=== PATIENT | male | born 1945 | race Caucasian/White ===

== ENCOUNTER 2023-12-01 20:25 | Inpatient (IN) | payer MEDICARE, OTHER, SELFPAY ==
[2023-12-01] VITALS (12 sets, daily range): BP systolic 110–164; BP diastolic 59–82; BMI 27.3; BMI 32.5
--- NOTE | 2023-12-01 12:16 | ED.GENMED ---
History of Present Illness
General
Chief Complaint: Male Genito-Urinary Symptoms
Source: patient
Exam Limitations: none
Time Seen by Provider: 12/01/23 12:01
Travel History
Have you had any contact with someone who has COVID-19?: No
Do you have any symptoms of coronavirus? Fever > 100 degrees, chills, cough, shortness of breath, sore throat, loss of taste or smell, muscle aches, or headache?: No
History of Present Illness
History of Present Illness:
78-year-old male on aspirin and Brilinta presents with grossly bloody urine starting today. He notes increased frequency but denies any dysuria. He feels as though he empties his bladder every time he urinates. No flank pain. No fever. No prior
issues similar to this. No other complaints at this time
Past History
Past History
ED Past Medical History: CAD
ED Past Surgical History: None
Social History
Tobacco: Former smoker
Alcohol: Occasional
Personal:
Living: with family
Phy Exam
Physical Exam
Physical Exam:
General: Well-appearing male no acute respiratory distress
HEENT: Normocephalic atraumatic
Heart: Regular rate and rhythm no murmurs
Lungs: Clear to auscultation bilaterally no wheezing
Abdomen is soft nontender nondistended no guarding or rebound normal bowel sounds
Extremities: No cyanosis or edema
Course
Orders/Labs/Results
Orders:
Orders
12/01/23 12:39
Complete Blood Count/With Diff Urgent
Comprehensive Metabolic Panel Urgent
PTT Urgent
Prothrombin Time Urgent
Urinalysis Reflex To Culture Urgent
Date Specimen was Collected: 12/01/23
Time Specimen was Collected: 12:20
Urine Microscopic Reflex Cult Urgent
12/01/23 14:11
Lidocaine 2% [Lidocaine Uro-Jet 2%] 1 syringe .ROUTE .[facility]
12/01/23 14:17
CBI- Treatment Q1H
Solution: saline
Irrigate to Clear?: Yes
Catheter [Julian Placement- Treatment] ONCE
Reason for insertion: Acute Retention
Catheter- Indwelling As Directed
Reason for insertion: Acute Retention
Size: 24
Type: 3 way
Discontinue Date/Time: 12/04/23 0600
12/01/23 14:52
CT Abd/pel Without Iv Or Oral Urgent
Comment:
Reason For Exam: hematuria
12/01/23 17:34
CefTRIAXone [Rocephin] 1,000 mg IV NOW STA
Abnormal Lab Results
12/01/23
12:39
RBC 4.33 L 10^6/uL
(4.70-6.10)
MCH 33.5 H pg
(27.0-31.0)
Chloride 109 H mmol/L
(98-107)
BUN 23 H mg/dl
(9-20)
Urine Ketones 1+ A
(Negative)
Ur Occult Blood Reflex 4+ A
(Negative)
Urine Bilirubin 1+ A
(Negative)
Urine RBC >100 A /HPF
(0-2)
Urine Albumin (Reflex) 3+ A
(Neg - Trace)
12/01/23 12:39
12/01/23 12:39
Vital Signs
Initial and Last Documented VS:
Initial Vital Signs
Temp Pulse Resp BP Pulse Ox
98.1 F 59 18 157/76 98
12/01/23 11:30 12/01/23 11:30 12/01/23 11:30 12/01/23 11:30 12/01/23 11:30
Last Documented Vital Signs
Temp Pulse Resp BP Pulse Ox
98.1 F 60 18 127/76 100
12/01/23 11:30 12/01/23 17:15 12/01/23 11:30 12/01/23 17:00 12/01/23 17:15
MDM/Problems Addressed
Differential Diagnosis Includes:
Hematuria. Consider cystitis vs stone vs idiopathic.
check UA, labs. Vitals are stable. No flank pain.
Will obtain postvoid residual
*Critical Care Note
Total Time (30-74mins, 75-104mins- exclusive of procedures): Not Applicable
Update Note
Update Note:
Postvoid residual demonstrates greater than 860 mL in the bladder. A 24-gauge three-way catheter was placed and CBI was initiated. Patient received total of 6 L of irrigation. Patient still with bloody urine with small clots. CT of the abdomen
pelvis showed blood products in the bladder but no other acute finding. Patient will be kept in the hospital. Rocephin started. Urology and medical team made aware
ED Attending Note
-
Portions of this chart may have been created with voice recognition software.� Occasional wrong word or��sound alike� substitutions may have occurred due to the inherent limitations of voice recognition software.
Discharge Plan
Departure
Patient Disposition: Admit
Date of Disposition: 12/01/23
Time of Disposition: 17:42
Admit to: Med/Surg
Presentation/result/management discussed w/ accepting MD/DO: Hospitalist
Discharge Problem:
Hematuria
Prescriptions:
No Action
ascorbic acid (vitamin C) [Vitamin C] 500 mg Tablet
500 mg PO DAILY
vitamin B complex Tablet
1 tab PO DAILY
saw palmetto 500 mg Capsule
500 mg PO HS
Brilinta 90 mg Tablet
90 mg PO BID Qty: 180 1RF
aspirin 81 mg Tablet,Delayed Release (Dr/Ec)
81 mg PO DAILY Qty: 90 0RF
metoprolol succinate 25 mg tablet extended release 24 hr
25 mg PO HS
vitamin E 268 mg (400 unit) Capsule
268 mg PO DAILY
cholecalciferol (vitamin D3) [Vitamin D3] 25 mcg (1,000 unit) Tablet
25 mcg PO DAILY
atorvastatin 40 mg tablet
40 mg PO HS
nitroglycerin 0.4 mg tablet, sublingual
0.4 mg sublingual [id number] PRN (Reason: chest pain)
Referrals:
Blake Sage DO [Family Provider] -
Interventions
Interventions:
*Risk Screen - Suicide Last Done: 12/01/23 11:30
*General Assessment Last Done: 12/01/23 11:30
*Neglect/Abuse Screening Last Done: 12/01/23 11:30
ED- Fall Risk Assessment Last Done: 12/01/23 11:58
*ED COVID-19 Vaccine History Last Done: 12/01/23 11:58
ED-Male Genitourinary Assessment Last Done: 12/01/23 11:58
[2023-12-01 12:55] LABS: % Basophils 0.5 % (0-2); % Eosinophils 1.1 % (0-6); % Immature Granulocytes 0.3 % (0-0.5); % Lymphocytes 22.1 % (20.5-51.1); % Monocytes 8.2 % (1.7-9.3); % Neutrophils 67.8 % (42.2-75.2); Absolute Eosinophils 0.1 10^3/uL (0-0.7); Absolute Lymphocytes 1.4 10^3/uL (1.2-3.4); Absolute Monocytes 0.5 10^3/uL (0.1-0.6); Absolute Neutrophils 4.4 10^3/uL (1.4-6.5); Hematocrit 40.7 % (39.0-52.0); Hemoglobin 14.5 g/dL (13.0-18.0); Mean Corp Hgb Conc. 35.6 g/dL (33.0-37.0); Mean Corpuscular Hgb 33.5 pg (27.0-31.0); Mean Platelet Volume 10.2 fL (7.4-10.4); Nucleated Red Blood Cells % 0 % (-); Platelet Count 206 10^3/uL (130-400); Red Blood Cell Count 4.33 10^6/uL (4.70-6.10); Red Cell Dist. Width 12.6 % (11.5-14.5); White Blood Cell Count 6.4 10^3/uL (4.8-10.8)
[2023-12-01 13:07] LABS: ALT (SGPT) 27 U/L (0-50); AST (SGOT) 31 U/L (17-59); Albumin 3.9 g/dl (3.5-5.0); Alkaline Phosphatase 121 U/L (38-126); Blood Urea Nitrogen 23 mg/dl (9-20); Carbon Dioxide 26 mmol/L (22-30); Chloride 109 mmol/L (98-107); Estimated Creatinine Clearance 53 ml/min; Glucose 80 mg/dl (70-99); Potassium 3.9 mmol/L (3.5-5.1); Sodium 137 mmol/L (135-145); Total Bilirubin 1.3 mg/dl (0.2-1.3); Total Protein 6.6 g/dl (6.3-8.2); eGFR > 60.00
--- NOTE | 2023-12-01 13:09 | EDRN ---
the pt pressed the call chung and this RN entered the pts room and stated to this RN, 'I have a few problems, first the blood pressure cuff gets tight when it goes off and what do i do when i have to go to the bathroom, i'm all hooked up here', this
RN notified the pt to press the call chung when he needs to urinate, will continue to monitor the pt closely
[2023-12-01 13:14] LABS: Urine Albumin 3+ (Neg - Trace); Urine Bilirubin 1+ (Negative); Urine Character Bloody (Clear); Urine Color Red; Urine Glucose Negative (Negative); Urine Ketone 1+ (Negative); Urine Leukocyte Negative (Negative); Urine Nitrite Negative (Negative); Urine Occult Blood 4+ (Negative); Urine Urobilinogen Negative (Neg - 1+)
--- NOTE | 2023-12-01 13:19 | EDRN ---
the pt pressed the call chung and this RN entered the pts room, the pt stated to this RN 'I need to go to the bathroom so unhook me', this RN removed panel monitor, Sp02 disconnected and BP cuff disconnected, the pt ambulated to the bathroom with
no issues
[2023-12-01 13:30] LABS: APTT 29.3 Sec (23.4-35.0); INR 1.12; PT 14.2 Sec (11.4-14.6)
[2023-12-01 13:33] LABS: Urine Red Blood Cell >100 /HPF (0-2)
--- NOTE | 2023-12-01 13:56 | EDRN ---
the pt was bladder scanned per Jose Elias MARIE and >863 was found to be in the pts bladder, this was post void residual
[2023-12-01] MEDS: ROCEPHIN 1000 MG IV (17:41)
--- NOTE | 2023-12-01 19:40 | HPS.HSE ---
Family Physician
-
Family Physician: Blake Sage
Chief Complaint
-
Bloody urine
History of Present Illness
78 y/o male with past medical history of coronary artery disease, NSTEMI (placed on Dual Antiplatelet therapy in March 2023 after stent placed), urinary retention, hypertension, hyperlipidemia and obesity presented with bloody urine since this
morning. Patient called his primary care provider who advised that patient go to the ER if his hematuria persisted which it did. Patient said subsequent urination showed more intense red-colored urine. Patient denied any suprapubic pain, abdominal
pain, dizziness, palpitations or any other complaints. Patient also was found to be retaining urine in the ER, and was started on continuous bladder irrigation, urine was also found to have small blood clots.
Medical History
Past Medical History
Past Medical History: Reports Other (As per HPI above)
Past Surgical History: Reports Cardiac
Social History
Tobacco: Former Smoker
Alcohol: Occasional
Family History
Family History: Not pertinent
Allergies / Home Medications
Allergies reflects when Allergies were last updated in [facility].
Home Medications with original date entered in [facility]
Allergy/Medication List:
Allergies
Allergy/AdvReac Type Severity Reaction Status Date / Time
No Known Allergies Allergy Verified 12/01/23 11:30
Home Medications
ascorbic acid (vitamin C) 500 mg tablet (Vitamin C) 500 mg PO DAILY Supplement 04/11/23
saw palmetto 500 mg capsule 500 mg PO HS Supplement 04/11/23
vitamin B complex 1 tab PO DAILY Supplement 04/11/23
aspirin 81 mg tablet,delayed release 81 mg PO DAILY Blood Clot Prevention/Tx #90 tabs 04/12/23
ticagrelor 90 mg tablet (Brilinta) 90 mg PO BID #180 tabs 04/12/23
atorvastatin 40 mg tablet 40 mg PO HS 12/01/23
cholecalciferol (vitamin D3) 25 mcg (1,000 unit) tablet (Vitamin D3) 25 mcg PO DAILY 12/01/23
metoprolol succinate 25 mg tablet,extended release 24 hr 25 mg PO HS 12/01/23
nitroglycerin 0.4 mg sublingual tablet 0.4 mg sublingual [id number] PRN chest pain 12/01/23
vitamin E 268 mg (400 unit) capsule 268 mg PO DAILY 12/01/23
Review of Systems
-
A 12 point ROS was completed and negative except as noted: Yes
Physical Exam
Vital Signs
Vital Signs
Temp Pulse Resp BP Pulse Ox
98.1 F 59 18 143/76 100
12/01/23 11:30 12/01/23 19:00 12/01/23 11:30 12/01/23 19:00 12/01/23 19:00
Physical Exam
General: No Apparent Distress and Conversant
HEENT: NormoCephalic and Moist mucous membranes
Respiratory: Clear
Cardiac: S1/S2 and Regular Rhythm
GI: Soft, Non Tender and Normal Bowel Sounds
Genito-urinary: Continuous Bladder Irrigation
Musculoskeletal: No Cyanosis
Skin: Warm and Dry
Neuro: Awake, Alert and AO x 3
Psych: Calm and Intact Judgment/Insight
Laboratory Results
-
12/01/23 12:39
12/01/23 12:39
Laboratory Results
PT 14.2 Sec (11.4-14.6) 12/01/23 12:39
INR 1.12 12/01/23 12:39
APTT 29.3 Sec (23.4-35.0) 12/01/23 12:39
Total Bilirubin 1.3 mg/dl (0.2-1.3) 12/01/23 12:39
AST 31 U/L (17-59) 12/01/23 12:39
ALT 27 U/L (0-50) 12/01/23 12:39
Alkaline Phosphatase 121 U/L (38-126) 12/01/23 12:39
Impression/Plan
-
Assessment/Plan
Gross hematuria
Urinary Retention
-Urology consulted, recommendations appreciated
-Per discussion with Dr. Johnson (on-call urologist) via [place] [employer] on December 01, 2023: can give Tolterodine 4 mg Q24H and Diazepam 5 mg PO TID as needed for urinary catheter discomfort
-Continue CBI
-Monitor CBC
-Will need to check with cardiology regarding whether safe to hold non-Aspirin antiplatelet agent given NSTEMI in March 2023 status post stent placement
Coronary artery disease
NSTEMI (placed on Dual Antiplatelet therapy in March 2023 after stent placed)
-Continue DAPT for now
-Continue home Toprol XL 25 mg PO HS
-Continue home Atorvastatin 40 mg HS
Hypertension - continue home beta yovany as above
Hyperlipidemia - continue statin as above
Obesity
DVT Prophylaxis: SCDs (no chemical DVT PPx due to hematuria)
Code Status:
Gross hematuria while on dual antiplatelet therapy for NSTEMI and stent in March 2023 and monitoring of hemoglobin is a high risk encounter.
--- NOTE | 2023-12-01 21:00 | CON.CAR ---
Consultation
Consultation Request
Date/Time Consultation Requested: December 01, 2023
Date/Time Consultation Performed: December 02, 2023
Requesting Provider: Hospitalist
Performing Provider: Elizabeth
Reason for Consultation: Hematuria-DAPT therapy
Medical History
-
Chief Complaint: Hematuria
History of Present Illness:
78 year old male with prior history of stent 03/2023 who presents with enrike hematuria. On DAPT therapy. S/P bustamante with irrigation. LAD stent 03/2023. We are consulted for management. He discussed his care with Dr. Jonhson. His hematuria appears
to be improving today. He is not missed any doses of DAPT therapy at home. He has no active chest pain or pressure.
Assessment:
Presentation with hematuria
DAPT Therapy
NSTEMI, peak trop 0.21, s/p LAD PCI 04/11/23
HTN
Past Medical History
Past Medical History: CAD
Past Surgical History: Cardiac
Social History
Tobacco: Non-Smoker
Alcohol: None
Drug: None
Personal: Other
Living: Other
Employment: Retired
Family History
Family History: Reviewed & Not Pertinent
Allergies / Home Medications
Allergy/AdvReac Type Severity Reaction Status Date / Time
No Known Allergies Allergy Verified 12/01/23 11:30
Medication Instructions Recorded Confirmed Type
ascorbic acid (vitamin C) 500 mg 500 mg PO DAILY Supplement 04/11/23 12/01/23 History
tablet (Vitamin C)
saw palmetto 500 mg capsule 500 mg PO HS Supplement 04/11/23 12/01/23 History
vitamin B complex 1 tab PO DAILY Supplement 04/11/23 12/01/23 History
aspirin 81 mg tablet,delayed 81 mg PO DAILY Blood Clot 04/12/23 12/01/23 Rx
release Prevention/Tx #90 tabs
ticagrelor 90 mg tablet (Brilinta) 90 mg PO BID #180 tabs 04/12/23 12/01/23 Rx
atorvastatin 40 mg tablet 40 mg PO HS 12/01/23 12/01/23 History
cholecalciferol (vitamin D3) 25 25 mcg PO DAILY 12/01/23 12/01/23 History
mcg (1,000 unit) tablet (Vitamin
D3)
metoprolol succinate 25 mg 25 mg PO HS 12/01/23 12/01/23 History
tablet,extended release 24 hr
nitroglycerin 0.4 mg sublingual 0.4 mg sublingual [id number] PRN 12/01/23 12/01/23 History
tablet chest pain
vitamin E 268 mg (400 unit) capsule 268 mg PO DAILY 12/01/23 12/01/23 History
Review of Systems
-
All other systems: Negative unless noted
: Bleeding
Physical Exam
Vital Signs
Temp Pulse Resp BP Pulse Ox
98.1 F 64 18 153/66 98
12/01/23 11:30 12/01/23 20:15 12/01/23 11:30 12/01/23 20:00 12/01/23 20:15
Lab Results
12/01/23 12:39
Physical Exam
General: Well Developed and Well Nourished
HEENT: Normocephalic and Anicteric
Respiratory: Clear
Cardiac: S1/S2 and Regular Rhythm
Breast: Deferred by me
GI: Soft, Non Tender and Non Distended
Rectal: Deferred by Provider
Genito-urinary: No Costovertebral Tender
Musculoskeletal: No Clubbing and No Cyanosis
Skin: Warm and Dry
Neuro: Awake, Alert and Oriented
Hematologic/Lymphatic: No Lymphadenopathy
Psych: Calm
Impression / Plan
-
Assessment:
Presentation with hematuria
DAPT therapy
NSTEMI, peak trop 0.21, s/p LAD PCI 04/11/23
HTN
Plan and recommendations:
Will continue uninterrupted aspirin regardless of his hematuria
Urology following and if his bleeding stops will be discharged with irrigation. If he has continued bleeding operative care may be required.
As such I would hold his Brilinta today and if bleeding improves would resume Brilinta tomorrow as he is only 6 months post stents and we would like to minimize interruption of his Brilinta.
I have no objection to resuming this tomorrow if he is improving and discharge per internal medicine and neurology
Data Reviewed
-
EKG: Tracing Personally Visualized and interpreted
Radiology: Image Personally Visualized and interpreted
Medical Tests (Nuc Med, Echo etc): Image Personally Visualized and interpreted
Labs: Labs Reviewed by me
Old Records: Reviewed
--- NOTE | 2023-12-01 21:30 | PTCARENOTE ---
Received pt from ED, ambulated from stretcher to bed- no complaints of pain, AAOx3, CBI running.
[2023-12-01] MEDS: TOPROL XL 25 MG PO (22:38)
[2023-12-01] MEDS: LIPITOR 40 MG PO (22:38)
[2023-12-01] MEDS: BRILINTA 90 MG PO (22:39)
[2023-12-01] MEDS: VALIUM 5 MG PO (22:39)
[2023-12-01] MEDS: DETROL LA 4 MG PO (22:39)
--- NOTE | 2023-12-02 00:17 | W.PN.UPDATE ---
Addendum entered and electronically signed by HEBER Garcia 12/02/23 06:09:
Dr alatorre states ok to hold brillinta
Ok to give TXA if needed
Addendum entered and electronically signed by HEBER Garcia 12/02/23 01:24:
will check with cardiology first prior to initiation on TXA given stent hx and DAPT
TT sent to dr alatorre
Original Note:
Update Note
Progress Note Update
RN reports despite CBI wide open pt needing hand irrigation of copious clots frequently (<15min)
Dr Johnson notified regarding above who recommended TXA iv x1
Will order per Urology recommendation
Will make NPO after midnight incase OR needed for clot evacuation
--- NOTE | 2023-12-02 01:00 | PTCARENOTE ---
Pt having frequent clots after multiple attempts with keeping CBI wide open. Hand irrigating Q15min. Notified POLICY SPECIALIST and Urology. Dr. Johnson recommended Tranxemic acid- POLICY SPECIALIST ordered but need clarification from cardiology given pt hx with recent stent.
Throughout night- after 4 hours of hand irrigating CBI; CBI draining (punch-pink). CBI needing hand irrigation every 2-3 hours- Pt comfortable. VSS
[2023-12-02 03:25] VITALS: BP 131/73
[2023-12-02 04:51] LABS: % Basophils 0.4 % (0-2); % Eosinophils 0.8 % (0-6); % Immature Granulocytes 0.4 % (0-0.5); % Lymphocytes 15.6 % (20.5-51.1); % Monocytes 8.6 % (1.7-9.3); % Neutrophils 74.2 % (42.2-75.2); Absolute Eosinophils 0.1 10^3/uL (0-0.7); Absolute Lymphocytes 1.2 10^3/uL (1.2-3.4); Absolute Monocytes 0.6 10^3/uL (0.1-0.6); Absolute Neutrophils 5.5 10^3/uL (1.4-6.5); Hematocrit 39.7 % (39.0-52.0); Hemoglobin 13.9 g/dL (13.0-18.0); Mean Corpuscular Hgb 33.7 pg (27.0-31.0); Mean Corpuscular Volume 96.4 fL (80.0-94.0); Mean Platelet Volume 10.6 fL (7.4-10.4); Nucleated Red Blood Cells % 0 % (-); Platelet Count 185 10^3/uL (130-400); Red Blood Cell Count 4.12 10^6/uL (4.70-6.10); Red Cell Dist. Width 12.4 % (11.5-14.5); White Blood Cell Count 7.4 10^3/uL (4.8-10.8)
[2023-12-02 05:14] LABS: Blood Urea Nitrogen 23 mg/dl (9-20); Calcium 9.4 mg/dl (8.4-10.2); Carbon Dioxide 23 mmol/L (22-30); Chloride 107 mmol/L (98-107); Estimated Creatinine Clearance 73 ml/min; Glucose 108 mg/dl (70-99); Sodium 138 mmol/L (135-145); eGFR > 60.00
--- NOTE | 2023-12-02 05:38 | CONS.URO ---
Consultation
-
Date/Time Consultation Performed: 12/02/2330
Performing Provider: Alex
Reason for Consultation: hematuria
Medical History
History of Present Illness
78 y/o male with past medical history of coronary artery disease, NSTEMI (placed on Dual Antiplatelet therapy in March 2023 after stent placed), presented with bloody urine since this morning. Patient called his primary care provider who advised that
patient go to the ED.
A 3-way Bustamante was placed in ED -- hand-irrigation was required numerous times to clear accumulated clots.
Pt reports no antecedent hx.
Past Medical History
Past Medical History: Other (CAD, hypertension, hyperlipidemia and obesity)
Family History
Family History: Reviewed & Not Pertinent
Allergies/Home Medications
Allergies
Allergy/AdvReac Type Severity Reaction Status Date / Time
No Known Allergies Allergy Verified 12/01/23 11:30
Home Medications
Medication Instructions Recorded Confirmed Type
ascorbic acid (vitamin C) 500 mg 500 mg PO DAILY Supplement 04/11/23 12/01/23 History
tablet (Vitamin C)
saw palmetto 500 mg capsule 500 mg PO HS Supplement 04/11/23 12/01/23 History
vitamin B complex 1 tab PO DAILY Supplement 04/11/23 12/01/23 History
aspirin 81 mg tablet,delayed 81 mg PO DAILY Blood Clot 04/12/23 12/01/23 Rx
release Prevention/Tx #90 tabs
ticagrelor 90 mg tablet (Brilinta) 90 mg PO BID #180 tabs 04/12/23 12/01/23 Rx
atorvastatin 40 mg tablet 40 mg PO HS 12/01/23 12/01/23 History
cholecalciferol (vitamin D3) 25 25 mcg PO DAILY 12/01/23 12/01/23 History
mcg (1,000 unit) tablet (Vitamin
D3)
metoprolol succinate 25 mg 25 mg PO HS 12/01/23 12/01/23 History
tablet,extended release 24 hr
nitroglycerin 0.4 mg sublingual 0.4 mg sublingual [id number] PRN 12/01/23 12/01/23 History
tablet chest pain
vitamin E 268 mg (400 unit) capsule 268 mg PO DAILY 12/01/23 12/01/23 History
Physical Exam
Vital Signs
Vital Signs
Temp Pulse Resp BP Pulse Ox
98.1 F 60 16 131/73 98
12/02/23 03:25 12/02/23 03:25 12/02/23 03:25 12/02/23 03:25 12/02/23 03:25
Lab / Testing Results
Laboratory Results
12/02/23 04:33
12/02/23 04:33
Physical Exam
adult male
General: Well Developed and Well Nourished
HEENT: Normocephalic
GI: Soft, Non Tender and Non Distended
Genito-urinary: No Costovertebral Tend and Bustamante Catheter (3-way bustamante: hand-irrigated --> no clots; pale pink outflow with CBI)
Assessment / Plan
-
Gross Hematuria: appear to be of benign prostatic origin potentiated by DAPT
Rec: CBI --> wean as tolerated; will remove Bustamante when hematuria has cleared; will need outpatient cysto to r/o non-visualized
bladder cancer
start Finasteride
Data Reviewed
-
CT Scan: Image personally visualized and interpreted (enlarged prostate with clotted blood in bladder but no upper tract pathology)
Lab Data: Labs Reviewed
Old Records: Reviewed
[2023-12-02 06:00] VITALS: BMI 32.3
[2023-12-02 07:35] VITALS: BP 133/74
[2023-12-02] MEDS: DETROL LA 4 MG PO (08:15)
[2023-12-02] MEDS: B COMPLEX w/VITAMIN C 1 CAPLET PO (08:15)
[2023-12-02] MEDS: PROSCAR 5 MG PO (08:16)
[2023-12-02] MEDS: VITAMIN C 500 MG PO (08:16)
[2023-12-02] MEDS: VITAMIN E 400 UNITS PO (08:16)
[2023-12-02] MEDS: ASPIR LOW (ENTERIC COATED) 81 MG PO (08:16)
[2023-12-02] MEDS: VITAMIN D3 (cholecalciferol) 25 MCG PO (08:16)
[2023-12-02 11:26] VITALS: BP 137/75
[2023-12-02 15:30] VITALS: BP 130/71
[2023-12-02] MEDS: ROCEPHIN 1000 MG IV (17:44)
[2023-12-02] MEDS: STERILE WATER FOR INJECTION 10 ML IV (17:45)
[2023-12-02 18:52] VITALS: BP 130/68
--- NOTE | 2023-12-02 18:57 | W.PN.HOSP.TC ---
Today's Communication/Plan
-
Urine getting more clear.
Hopefully can resume Brilinta tomorrow.
Continue Aspirin as usual.
CBC in the AM
Assessment / Plan
Assessment / Plan
Physical Exam
General: No Apparent Distress and Conversant
HEENT: Normocephalic and Moist mucous membranes
Respiratory: Clear
Cardiac: S1/S2 and Regular Rhythm
GI: Soft, Non Tender and Normal Bowel Sounds
Genito-urinary: Continuous Bladder Irrigation with 3-way bustamante catheter clear with some pale pink-colored urine
Skin: Warm and Dry
Neuro: Awake, Alert and AO x 3
Psych: Calm and Intact Judgment/Insight
Assessment/Plan
Gross hematuria likely suspected secondary benign prostatic potentiated by Dula Antiplatelet Therapy
Urinary Retention
-Urology consulted, recommendations appreciated
-Per discussion with Dr. Johnson (on-call urologist) via [place] [employer] on December 01, 2023:�can give Tolterodine 4 mg Q24H and Diazepam 5 mg PO TID as needed for urinary catheter discomfort
-Continue CBI but wean as tolerated
-Can remove Bustamante when hematuria has cleared -- check with urology first
-Will need outpatient cysto study to rule out bladder cancer
-Finasteride
-Monitor CBC
-Hold brilinta on 12/02/23 with goal of resuming on 12/03/23, as per cardiology
-Continue Aspirin
Coronary artery disease
NSTEMI (placed on Dual Antiplatelet therapy in March 2023 after stent placed)
-Continue Aspirin
-Brilinta to be continued hopefully on 12/03/23
-Continue home Toprol XL 25 mg PO HS
-Continue home Atorvastatin 40 mg HS
Hypertension - continue home beta yovany as above
Hyperlipidemia - continue statin as above
Obesity
DVT Prophylaxis: SCDs (no chemical DVT PPx due to hematuria)
Code Status: Full Code
Anticipated Discharge: 24 - 48 hours
Subjective/Interval History
-
Date of Service: December 02, 2023
Patient was seen and examined. Overnight, per report, patient was having more blood clots in the urinary catheter. Brilinta was held. Later in the morning, it appeared his urine was clearing up.
Objective Data
-
Vital Signs:
Vital Signs
Temp Pulse Resp BP Pulse Ox
98.9 F 69 17 130/68 98
12/02/23 18:47 12/02/23 18:47 12/02/23 18:47 12/02/23 18:52 12/02/23 15:37
I&O
12/01/23 12/02/23 12/03/23
06:59 06:59 06:59
Intake Total 180 / 180
Output Total 800 / 800
Balance -620 / -620
[2023-12-02] MEDS: LIPITOR 40 MG PO (19:40)
[2023-12-02] MEDS: TOPROL XL 25 MG PO (19:40)
[2023-12-02 23:20] VITALS: BP 134/76
[2023-12-03 04:00] VITALS: BP 121/75
[2023-12-03 06:00] VITALS: BMI 32.7
[2023-12-03 06:07] LABS: % Basophils 0.3 % (0-2); % Eosinophils 1.4 % (0-6); % Immature Granulocytes 0.1 % (0-0.5); % Lymphocytes 23.2 % (20.5-51.1); % Monocytes 9.4 % (1.7-9.3); % Neutrophils 65.6 % (42.2-75.2); Absolute Eosinophils 0.1 10^3/uL (0-0.7); Absolute Lymphocytes 1.8 10^3/uL (1.2-3.4); Absolute Monocytes 0.7 10^3/uL (0.1-0.6); Hematocrit 39.9 % (39.0-52.0); Hemoglobin 13.9 g/dL (13.0-18.0); Mean Corp Hgb Conc. 34.8 g/dL (33.0-37.0); Mean Corpuscular Volume 97.6 fL (80.0-94.0); Mean Platelet Volume 10.4 fL (7.4-10.4); Nucleated Red Blood Cells % 0 % (-); Platelet Count 179 10^3/uL (130-400); Red Blood Cell Count 4.09 10^6/uL (4.70-6.10); Red Cell Dist. Width 12.5 % (11.5-14.5); White Blood Cell Count 7.6 10^3/uL (4.8-10.8)
[2023-12-03 06:34] LABS: Blood Urea Nitrogen 22 mg/dl (9-20); Calcium 9.4 mg/dl (8.4-10.2); Carbon Dioxide 23 mmol/L (22-30); Chloride 105 mmol/L (98-107); Estimated Creatinine Clearance 60 ml/min; Glucose 91 mg/dl (70-99); Magnesium 2.1 mg/dl (1.6-2.3); Potassium 4.5 mmol/L (3.5-5.1); Sodium 137 mmol/L (135-145); eGFR > 60.00
[2023-12-03 08:17] VITALS: BP 127/63
[2023-12-03] MEDS: VITAMIN E 400 UNITS PO (08:17)
[2023-12-03] MEDS: ASPIR LOW (ENTERIC COATED) 81 MG PO (08:17)
[2023-12-03] MEDS: B COMPLEX w/VITAMIN C 1 CAPLET PO (08:17)
[2023-12-03] MEDS: DETROL LA 4 MG PO (08:17)
[2023-12-03] MEDS: VITAMIN C 500 MG PO (08:18)
[2023-12-03] MEDS: PROSCAR 5 MG PO (08:18)
[2023-12-03] MEDS: VITAMIN D3 (cholecalciferol) 25 MCG PO (08:18)
--- NOTE | 2023-12-03 08:38 | W.PN.URO.CBU ---
Today's Communication / Plan
-
Rec:
stop CBI
; will remove Julian if no clots recur; if he voids satisfactorily, he could then be discharged
will need outpatient cysto to r/o non-visualized bladder cancer
Finasteride
Assessment / Plan
-
hematuria has minimized
Diagnosis
-
Date of Service: December 03, 2023
-
Patient Diagnosis:
Gross Hematuria: appears to be of benign prostatic origin potentiated by DAPT
Objective
-
Vital Signs
Temp Pulse Resp BP Pulse Ox
97.9 F 69 14 127/63 96
12/03/23 08:17 12/03/23 08:17 12/03/23 08:17 12/03/23 08:17 12/03/23 08:17
Intake and Output
12/02/23 12/03/23 12/04/23
06:59 06:59 06:59
Intake Total 430 / 430
Output Total 2400 / 3910 1510 / 1510
Balance -1970 / -3480 -1510 / -1510
Intake:
Oral fluids 430 / 430
Output:
True Urine Output from CBI 2400 / 3910 1510 / 1510
Laboratory Results
12/03/23 05:47
12/03/23 05:47
Physical Exam
-
General - no acute distress
Abdomen - soft, non-tender, positive bowel sounds, no distention
Genitalia - Julian with slow CBI: pink outflow
Care Review
Data Reviewed
Discussed with: Cardiology (Dr Johnson on 12/02) and Nursing
[2023-12-03] MEDS: EMLA CREAM 1 GRAM TOPICAL ×2 (10:03→22:02)
--- NOTE | 2023-12-03 10:19 | W.PN.HOSP.TC ---
Addendum entered and electronically signed by Robert Edmond MD 12/03/23 14:02:
Dgt (Taylor) and son in law (Per) arrived and requested to review hospital course. >15 minutes spent reviewing their concerns
Addendum entered and electronically signed by Robert Edmond MD 12/03/23 12:34:
Pt c/o constipation, will add scheduled Colace and prn MOM
Original Note:
Today's Communication/Plan
-
Brilinta remains on hold with significant hematuria
will recheck UA with C&S, remains on Rocephin
Assessment / Plan
Assessment / Plan
Assessment/Plan
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
Urinary Retention
-Urology consulted, recommendations appreciated
-Per discussion with Dr. Johnson (on-call urologist) via [place] [facility] on December 01, 2023:�can give Tolterodine 4 mg Q24H and Diazepam 5 mg PO TID as needed for urinary catheter discomfort
- CBI has just been stopped, urine remains grossly bloody
-Can remove Bustamante when hematuria has cleared -- check with urology first
-Will need outpatient cysto study to rule out bladder cancer
-Finasteride
-Monitor CBC
-Brilinta was given 2/3 only, Holding brilinta on 12/02/23 with goal of resuming on 12/03/23, as per cardiology, but await further input from cardio
-Continue Aspirin
Coronary artery disease
NSTEMI (placed on Dual Antiplatelet therapy in March 2023 after stent placed)
-Continue Aspirin
-Brilinta to be continued hopefully on 12/03/23
-Continue home Toprol XL 25 mg PO HS
-Continue home Atorvastatin 40 mg HS
Hypertension - continue home beta yovany as above
Hyperlipidemia - continue statin as above
Obesity
DVT Prophylaxis: SCDs (no chemical DVT PPx due to hematuria)
Code Status: Full Code
Anticipated Discharge: 24 - 48 hours
Subjective/Interval History
-
Date of Service: December 03, 2023
Still with gross hematuria, bustamante in place
Objective Data
-
Labs:
Laboratory Results
12/03/23
05:47
WBC 7.6
Hgb 13.9
Hct 39.9
Plt Count 179
Sodium 137
Potassium 4.5
Chloride 105
Carbon Dioxide 23
BUN 22 H
Creatinine 1.1
Glucose 91
Calcium 9.4
Vital Signs:
Vital Signs
Temp Pulse Resp BP Pulse Ox
97.9 F 69 14 127/63 96
12/03/23 08:17 12/03/23 08:17 12/03/23 08:17 12/03/23 08:17 12/03/23 08:17
I&O
12/02/23 12/03/23 12/04/23
06:59 06:59 06:59
Intake Total 430 / 430
Output Total 2400 / 3910 1510 / 1510
Balance -1970 / -3480 -1510 / -1510
Review of Systems
-
History Source: Patient and Coordinated Provider (MISAEL Bruner)
Constitutional: Denies Fever
EENT: Reports No Symptoms Reported
Respiratory: Reports No Symptoms
Cardiac: Reports No Symptoms; Denies Chest Pain
Abdomen/GI: Reports No Symptoms
Genitourinary: Reports Bleeding
Musculoskeletal: Reports No Symptoms
Neuro: Reports No Symptoms
Physical Exam
-
General: Well Developed, Well Nourished and No Apparent Distress
HEENT: Normocephalic, Atraumatic and Moist Mucous Membranes
Respiratory: Clear to Auscultation; Negative Wheezes, Rales or Rhonchi
Cardiac: Regular Rhythm and S1/S2
GI: Soft and Nondistended
Genito-urinary: No Costovertebral Tender and Bustamante; Negative Continuous Bladder Irrigation (just stopped 1 hr ago)
Musculoskeletal: No Clubbing, No Cyanosis and No Edema
Neuro: Awake, Alert and Oriented
[2023-12-03 11:06] LABS: Urine Albumin 3+ (Neg - Trace); Urine Bilirubin Negative (Negative); Urine Character Very Cloudy (Clear); Urine Color Red; Urine Glucose Negative (Negative); Urine Ketone Trace (Negative); Urine Leukocyte 1+ (Negative); Urine Nitrite Negative (Negative); Urine Occult Blood 4+ (Negative); Urine Urobilinogen Negative (Neg - 1+); Urine pH 6.5 (5.0-9.0)
[2023-12-03 11:57] VITALS: BP 126/77
[2023-12-03 12:06] LABS: Urine Mucus Few; Urine Squamous Cell 0-2 /LPF (Few)
[2023-12-03 12:07] LABS: Urine Bacteria Few (Negative); Urine Red Blood Cell >100 /HPF (0-2)
[2023-12-03] MEDS: COLACE 100 MG PO ×2 (14:35→21:14)
--- NOTE | 2023-12-03 15:03 | W.PN.CARDCBS ---
Today's Communication / Plan
-
Stop Brilinta
Continue aspirin
Impression / Plan
-
Assessment:
Presentation with hematuria
DAPT therapy
NSTEMI, peak trop 0.21, s/p LAD PCI 04/11/23
HTN
Plan and recommendations:
He has had recurrent hematuria despite stopping Brilinta
Discussed with interventional cardiology
Although he had a non-STEMI in March 2023, okay to stop Brilinta after 7 months given recurrent bleeding
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
Subjective
Date of Service: December 03, 2023
No complaints
Objective
Labs:
12/03/23 05:47
12/03/23 05:47
Labs
Hgb 13.9 g/dL (13.0-18.0) 12/03/23 05:47
Hct 39.9 % (39.0-52.0) 12/03/23 05:47
Plt Count 179 10^3/uL (130-400) 12/03/23 05:47
PT 14.2 Sec (11.4-14.6) 12/01/23 12:39
INR 1.12 12/01/23 12:39
APTT 29.3 Sec (23.4-35.0) 12/01/23 12:39
Sodium 137 mmol/L (135-145) 12/03/23 05:47
Potassium 4.5 mmol/L (3.5-5.1) 12/03/23 05:47
BUN 22 mg/dl (9-20) H 12/03/23 05:47
Creatinine 1.1 mg/dL (0.7-1.3) 12/03/23 05:47
Glucose 91 mg/dl (70-99) 12/03/23 05:47
Vital Signs and I&O:
Vital Signs
Temp Pulse Resp BP Pulse Ox
98 F 70 15 126/77 98
12/03/23 11:57 12/03/23 11:57 12/03/23 11:57 12/03/23 11:57 12/03/23 11:57
Vital Signs
Temp Pulse Resp BP Pulse Ox
98 F 70 15 126/77 98
12/03/23 11:57 12/03/23 11:57 12/03/23 11:57 12/03/23 11:57 12/03/23 11:57
Intake & Output
12/01/23 12/02/23 12/03/23 12/04/23
06:59 06:59 06:59 06:59
Intake Total 430 / 430
Output Total 2400 / 3910 1510 / 1510
Balance -1970 / -3480 -1510 / -1510
Physical Exam
Physical Exam
General: Well developed, well nourished in NAD.
Neck: Supple, no JVD, HJR, carotids +2 B/L, no bruits bilaterally.
Heart: Non displaced PMI, RRR, no murmurs, No S3, S4, no rubs.
Lungs: Clear to auscultation bilaterally, no wheeze, rhonchi, rubs bilaterally,
normal expiratory phase.
Extremities: No clubbing, cyanosis or edema bilaterally.
Neuro: Grossly nonfocal, awake, alert and oriented x3.
[2023-12-03 15:55] VITALS: BP 132/69
--- NOTE | 2023-12-03 16:05 | CM ---
CM following re: d/c planning
Chart reviewed
CM met with the patient at bedside; IA completed
Pt states he resides alone in a 2SH with no [place]
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
Pt has no past hx of VN/SNF/DME
Pt does have prescription coverage and rx's are filled at [facility] on [facility]
Pt PCP-Dr. Blake Sage
No needs are anticipated once patient is stable for d/c
CM will continue to monitor patient progress and assist with any needs as applicable
PLAN; d/c home no needs anticipated
[2023-12-03] MEDS: ROCEPHIN 1000 MG IV (17:37)
[2023-12-03] MEDS: STERILE WATER FOR INJECTION 10 ML IV (17:37)
--- NOTE | 2023-12-03 19:25 | PTCARENOTE ---
Per urology CBI was stopped and leg bag applied. Pt voided 300cc of hematuria in collection bag. Around noon Pt. complained of burning sensation around catheter and inability to void. Catheter was irrigated, multiple large blood clots were out.
Urology and Hospitalist notified, CBI initiated.
[2023-12-03 19:41] VITALS: BP 148/81
[2023-12-03] MEDS: TOPROL XL 25 MG PO (21:13)
[2023-12-03] MEDS: LIPITOR 40 MG PO (21:13)
[2023-12-03 23:08] VITALS: BP 114/76
[2023-12-04 03:43] VITALS: BP 124/68
--- NOTE | 2023-12-04 05:45 | PTCARENOTE ---
1930: During walking rounds pt c/o ABD pressure and burning sensation around the catheter. Irrigated per order with return of small clots. CBI running open for beginning of shift with punch colored urine and small clots. Pt continues to c/o
burning sensation around the catheter throughout remained of the shift, offered emla cream- pt denies. currently CBI running clear- rate decreased.
[2023-12-04] MEDS: MILK OF MAGNESIA 30 ML PO (05:59)
[2023-12-04 06:29] LABS: % Basophils 0.4 % (0-2); % Eosinophils 1.3 % (0-6); % Immature Granulocytes 0.2 % (0-0.5); % Lymphocytes 18.8 % (20.5-51.1); % Monocytes 9.8 % (1.7-9.3); % Neutrophils 69.5 % (42.2-75.2); Absolute Eosinophils 0.1 10^3/uL (0-0.7); Absolute Lymphocytes 1.5 10^3/uL (1.2-3.4); Absolute Monocytes 0.8 10^3/uL (0.1-0.6); Absolute Neutrophils 5.7 10^3/uL (1.4-6.5); Hematocrit 37.8 % (39.0-52.0); Hemoglobin 13.3 g/dL (13.0-18.0); Mean Corp Hgb Conc. 35.2 g/dL (33.0-37.0); Mean Corpuscular Hgb 33.8 pg (27.0-31.0); Mean Corpuscular Volume 95.9 fL (80.0-94.0); Mean Platelet Volume 10.5 fL (7.4-10.4); Nucleated Red Blood Cells % 0 % (-); Platelet Count 187 10^3/uL (130-400); Red Blood Cell Count 3.94 10^6/uL (4.70-6.10); Red Cell Dist. Width 12.3 % (11.5-14.5); White Blood Cell Count 8.2 10^3/uL (4.8-10.8)
[2023-12-04 06:41] LABS: Blood Urea Nitrogen 20 mg/dl (9-20); Calcium 8.8 mg/dl (8.4-10.2); Carbon Dioxide 23 mmol/L (22-30); Chloride 106 mmol/L (98-107); Estimated Creatinine Clearance 66 ml/min; Glucose 103 mg/dl (70-99); Potassium 3.9 mmol/L (3.5-5.1); Sodium 135 mmol/L (135-145); eGFR > 60.00
[2023-12-04 07:20] VITALS: BP 123/70
[2023-12-04] MEDS: COLACE 100 MG PO ×2 (08:10→20:16)
[2023-12-04] MEDS: VITAMIN C 500 MG PO (08:10)
[2023-12-04] MEDS: ASPIR LOW (ENTERIC COATED) 81 MG PO (08:10)
[2023-12-04] MEDS: VITAMIN D3 (cholecalciferol) 25 MCG PO (08:11)
[2023-12-04] MEDS: B COMPLEX w/VITAMIN C 1 CAPLET PO (08:11)
[2023-12-04] MEDS: VITAMIN E 400 UNITS PO (08:11)
[2023-12-04] MEDS: PROSCAR 5 MG PO (08:11)
--- NOTE | 2023-12-04 09:25 | W.PN.CARDCBS ---
Today's Communication / Plan
-
Continue on [id number] daily only, Brilinta stopped
We will sign off, please recall as needed
Impression / Plan
-
Assessment:
Presentation with hematuria
DAPT therapy
NSTEMI, peak trop 0.21, s/p LAD PCI 04/11/23
HTN
Plan and recommendations:
On going hematuria while on DAPT
Per interventional cardiology ok to stop Brillinta and continue on ASA 81mg daily given recurrent bleeding
Cont high intensity statin and BB
We will sign off, please recall as needed
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
Subjective
Date of Service: December 04, 2023
NAOE. Tells me hematuria is improving, remains with bustamante in place. No CP or SOB.
Objective
Labs:
12/04/23 05:48
12/04/23 05:48
Labs
Hgb 13.3 g/dL (13.0-18.0) 12/04/23 05:48
Hct 37.8 % (39.0-52.0) L 12/04/23 05:48
Plt Count 187 10^3/uL (130-400) 12/04/23 05:48
PT 14.2 Sec (11.4-14.6) 12/01/23 12:39
INR 1.12 12/01/23 12:39
APTT 29.3 Sec (23.4-35.0) 12/01/23 12:39
Sodium 135 mmol/L (135-145) 12/04/23 05:48
Potassium 3.9 mmol/L (3.5-5.1) 12/04/23 05:48
BUN 20 mg/dl (9-20) 12/04/23 05:48
Creatinine 1.0 mg/dL (0.7-1.3) 12/04/23 05:48
Glucose 103 mg/dl (70-99) H 12/04/23 05:48
Vital Signs and I&O:
Vital Signs
Temp Pulse Resp BP Pulse Ox
98.8 F 72 16 123/70 97
12/04/23 07:20 12/04/23 07:20 12/04/23 07:20 12/04/23 07:20 12/04/23 07:20
Vital Signs
Temp Pulse Resp BP Pulse Ox
98.8 F 72 16 123/70 97
12/04/23 07:20 12/04/23 07:20 12/04/23 07:20 12/04/23 07:20 12/04/23 07:20
Intake & Output
12/02/23 12/03/23 12/04/23 12/05/23
06:59 06:59 06:59 06:59
Intake Total 430 / 430
Output Total 2400 / 3910 3760 / 3760
Balance -1970 / -3480 -3760 / -3760
Physical Exam
Physical Exam
Gen: NAD, AAOx3
HEENT: NC/AT, sclera anicteric
Neck: No JVD
CV: RRR, NL s1/s2
Lungs: CTAB
Abd: S/ND
: Bustamante in place with punch colored urine
Ext: No LE edema
Skin: Warm, dry
Neuro: Non-focal
--- NOTE | 2023-12-04 09:36 | W.PN.URO.CBU ---
Today's Communication / Plan
-
if no major clots fill bladder 300cc cn=bi fluid and remove bustamante call urologu if no void didstention or pain
Assessment / Plan
-
hematuria has minimized will attempt voiding trial if no major clots
Diagnosis
-
Date of Service: December 04, 2023
-
Patient Diagnosis:
Post Op Day:
Patient Diagnosis:
Gross Hematuria: appears to be of benign prostatic origin potentiated by DAPT
Subjective
-
no clots
Objective
-
Vital Signs
Temp Pulse Resp BP Pulse Ox
98.8 F 72 16 123/70 97
12/04/23 07:20 12/04/23 07:20 12/04/23 07:20 12/04/23 07:20 12/04/23 07:20
Intake and Output
12/03/23 12/04/23 12/05/23
06:59 06:59 06:59
Intake Total 430 / 430
Output Total 2400 / 3910 3760 / 3760
Balance -1970 / -3480 -3760 / -3760
Intake:
Oral fluids 430 / 430
Output:
True Urine Output from CBI 2400 / 3910 3760 / 3760
Laboratory Results
12/04/23 05:48
12/04/23 05:48
Review of Systems
-
: No Symptoms
Physical Exam
-
General - well developed, well nourished, no acute distress
Chest - clear bilaterally
Abdomen - soft, non-tender, positive bowel sounds, no CVAT, no incisional pain or distention
Genitalia - normal
Rectal - normal
Skin - warm & dry with no rash
Neuro - AOx3, no motor deficits
Extremities - no clubbing, no cyanosis, no edema
Incision - clean, dry
Dressing - clean, dry, intact
Counseling
-
voiding trial
Care Review
Data Reviewed
Discussed with: Nursing and Family
CT Scan: Image Pers Reviewed
--- NOTE | 2023-12-04 11:35 | W.PN.HOSP.TC ---
Addendum entered and electronically signed by Robert Edmond MD 12/04/23 11:56:
dgt requests a PSA. Will order as an add on
Original Note:
Today's Communication/Plan
-
dc bustamante
Assessment / Plan
Assessment / Plan
Assessment/Plan
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
Urinary Retention
-Urology consulted, recommendations appreciated
-Call placed and discussed with Dr. Newsome. He would like bustamante catheter pulled to see if pt able to void. States catheter could be causing the clots. Discussed with nursing, catheter to be pulled
- CBI has just been stopped, urine remains grossly bloody
-Can remove Bustamante when hematuria has cleared -- check with urology first
-Will need outpatient cysto study to rule out bladder cancer
-Finasteride
-Monitor CBC
-Brilinta was given 2/3 only, Input from cardio appreciated, Dr. Hedrick relayed through Dr. Espinal that would be okay to stop the Brilinta
-Continue Aspirin
Coronary artery disease
NSTEMI (placed on Dual Antiplatelet therapy in April 11, 2023 after stent placed)
-Continue Aspirin
-Continue home Toprol XL 25 mg PO HS
-Continue home Atorvastatin 40 mg HS
Hypertension - continue home beta yovany as above
Hyperlipidemia - continue statin as above
Obesity
DVT Prophylaxis: SCDs (no chemical DVT PPx due to hematuria)
Code Status: Full Code
If pt able to urinate potential dc tomorrow
Anticipated Discharge: Within 24 hours
Subjective/Interval History
-
Date of Service: December 04, 2023
Awake, alert, conversant
Objective Data
-
Labs:
Laboratory Results
12/04/23
05:48
WBC 8.2
Hgb 13.3
Hct 37.8 L
Plt Count 187
Sodium 135
Potassium 3.9
Chloride 106
Carbon Dioxide 23
BUN 20
Creatinine 1.0
Glucose 103 H
Calcium 8.8
Vital Signs:
Vital Signs
Temp Pulse Resp BP Pulse Ox
98.8 F 72 16 123/70 98
12/04/23 07:20 12/04/23 07:20 12/04/23 07:20 12/04/23 07:20 12/04/23 11:22
I&O
12/03/23 12/04/23 12/05/23
06:59 06:59 06:59
Intake Total 430 / 430
Output Total 2400 / 3910 3760 / 3760 400 / 400
Balance -1970 / -3480 -3760 / -3760 -400 / -400
Review of Systems
-
History Source: Patient and Coordinated Provider (MISAEL Bruner)
Constitutional: Denies Fever
EENT: Reports No Symptoms Reported
Respiratory: Reports No Symptoms
Cardiac: Reports No Symptoms; Denies Chest Pain
Abdomen/GI: Reports No Symptoms
Genitourinary: Reports Bleeding
Musculoskeletal: Reports No Symptoms
Neuro: Reports No Symptoms
Physical Exam
-
General: Well Developed, Well Nourished and No Apparent Distress
HEENT: Normocephalic, Atraumatic and Moist Mucous Membranes
Respiratory: Clear to Auscultation; Negative Wheezes, Rales or Rhonchi
Cardiac: Regular Rhythm and S1/S2
GI: Soft and Nondistended
Genito-urinary: No Costovertebral Tender and Bustamante; Negative Continuous Bladder Irrigation (just stopped 1 hr ago)
Musculoskeletal: No Clubbing, No Cyanosis and No Edema
Neuro: Awake, Alert and Oriented
[2023-12-04 12:40] LABS: PSA, Total - Diagnostic 8.16 ng/ml (0.0-4.0)
[2023-12-04 15:10] VITALS: BP 141/75
[2023-12-04] MEDS: STERILE WATER FOR INJECTION 10 ML IV (18:27)
[2023-12-04] MEDS: ROCEPHIN 1000 MG IV (18:27)
[2023-12-04 19:58] VITALS: BP 107/56
[2023-12-04 20:13] VITALS: BP 133/76
[2023-12-04] MEDS: TOPROL XL 25 MG PO (21:26)
[2023-12-04] MEDS: LIPITOR 40 MG PO (21:26)
[2023-12-04 23:30] VITALS: BP 136/73
[2023-12-05 05:56] VITALS: BMI 31.7
[2023-12-05 08:00] VITALS: BP 135/66
[2023-12-05 08:27] LABS: % Basophils 0.6 % (0-2); % Eosinophils 2.6 % (0-6); % Immature Granulocytes 0.4 % (0-0.5); % Monocytes 9.9 % (1.7-9.3); % Neutrophils 67.5 % (42.2-75.2); Absolute Basophils 0.1 10^3/uL (0-0.2); Absolute Eosinophils 0.2 10^3/uL (0-0.7); Absolute Lymphocytes 1.6 10^3/uL (1.2-3.4); Absolute Monocytes 0.8 10^3/uL (0.1-0.6); Absolute Neutrophils 5.7 10^3/uL (1.4-6.5); Hematocrit 36.6 % (39.0-52.0); Hemoglobin 12.8 g/dL (13.0-18.0); Mean Corpuscular Hgb 33.6 pg (27.0-31.0); Mean Corpuscular Volume 96.1 fL (80.0-94.0); Mean Platelet Volume 11.3 fL (7.4-10.4); Nucleated Red Blood Cells % 0 % (-); Platelet Count 194 10^3/uL (130-400); Red Blood Cell Count 3.81 10^6/uL (4.70-6.10); Red Cell Dist. Width 12.4 % (11.5-14.5); White Blood Cell Count 8.4 10^3/uL (4.8-10.8)
[2023-12-05] MEDS: ASPIR LOW (ENTERIC COATED) 81 MG PO (09:07)
[2023-12-05] MEDS: B COMPLEX w/VITAMIN C 1 CAPLET PO (09:07)
[2023-12-05] MEDS: VITAMIN E 400 UNITS PO (09:08)
[2023-12-05] MEDS: VITAMIN D3 (cholecalciferol) 25 MCG PO (09:08)
[2023-12-05] MEDS: COLACE 100 MG PO (09:08)
[2023-12-05] MEDS: VITAMIN C 500 MG PO (09:08)
[2023-12-05] MEDS: PROSCAR 5 MG PO (09:08)
[2023-12-05 09:19] LABS: Blood Urea Nitrogen 23 mg/dl (9-20); Calcium 8.8 mg/dl (8.4-10.2); Carbon Dioxide 22 mmol/L (22-30); Chloride 106 mmol/L (98-107); Estimated Creatinine Clearance 59 ml/min; Glucose 91 mg/dl (70-99); Potassium 4.4 mmol/L (3.5-5.1); Sodium 133 mmol/L (135-145); eGFR > 60.00
--- NOTE | 2023-12-05 12:14 | W.PN.URO.CBU ---
Today's Communication / Plan
-
At patient and family's request, will pursue cystoscopic examination and possible remedy of lower urinary tract bleeding
as he has eaten today, 8-hour solid food NPO period precludes OR today, so he will be posted for tomorrow
Assessment / Plan
-
active hematuria has diminished -- lysing clots are evident currently
Diagnosis
-
Date of Service: December 05, 2023
-
Post Op Day:
Patient Diagnosis:
Gross Hematuria: appears to be of benign prostatic origin potentiated by DAPT
Subjective
-
patient is tired ob being in hospital and requests cystoscopic evaluation of origin of bleeding
Objective
-
Vital Signs
Temp Pulse Resp BP Pulse Ox
97.9 F 73 16 135/66 95
12/05/23 08:00 12/05/23 08:00 12/05/23 08:00 12/05/23 08:00 12/05/23 11:11
Intake and Output
12/04/23 12/05/23 12/06/23
06:59 06:59 06:59
Intake Total 1680 / 1680 240 / 240
Output Total 3760 / 3760 1900 / 1900
Balance -3760 / -3760 -220 / -220 240 / 240
Intake:
Oral fluids 1680 / 1680 240 / 240
Output:
Urine, Julian 1500 / 1500
True Urine Output from CBI 3760 / 3760 400 / 400
Laboratory Results
12/05/23 07:12
12/05/23 07:12
Physical Exam
-
General - well developed, well nourished, no acute distress
Chest - clear bilaterally
Abdomen - soft, non-tender, positive bowel sounds, no distention
Genitalia -Julian draining urine with lysing clots
Care Review
Data Reviewed
Discussed with: Cardiology, Hospitalist, Nursing and Other (OR)
--- NOTE | 2023-12-05 13:37 | W.PN.HOSP.TC ---
Today's Communication/Plan
-
for cysto tomorrow
Assessment / Plan
Assessment / Plan
Assessment/Plan
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
Urinary Retention
Pt was in [place] during [place] offensive (assume [place] exposure)
-Urology consulted, recommendations appreciated
-As per MISAEL Tipton, Urology planning cysto for tomorrow
- CBI has just been stopped, urine remains grossly bloody
-cysto tomorrow
-Finasteride
-Monitor CBC
-Brilinta was given 2/3 only, Input from cardio appreciated, Dr. Hedrick relayed through Dr. Espinal that Cardio would be okay to stop the Brilinta
-Continue Aspirin
PSA 8.16 (was ordered as per request of dgt).
Coronary artery disease
NSTEMI (placed on Dual Antiplatelet therapy in April 11, 2023 after stent placed)
-Continue Aspirin
-Continue home Toprol XL 25 mg PO HS
-Continue home Atorvastatin 40 mg HS
Hypertension - continue home beta yovany as above
BP 135/66
Hyperlipidemia - continue statin as above
Obesity
DVT Prophylaxis: SCDs (no chemical DVT PPx due to hematuria)
Code Status: Full Code
Anticipated Discharge: > 48 hours
Subjective/Interval History
-
Date of Service: December 05, 2023
hematuria, bustamante replaced
Objective Data
-
Labs:
Laboratory Results
12/05/23
07:12
WBC 8.4
Hgb 12.8 L
Hct 36.6 L
Plt Count 194
Sodium 133 L
Potassium 4.4
Chloride 106
Carbon Dioxide 22
BUN 23 H
Creatinine 1.1
Glucose 91
Calcium 8.8
Vital Signs:
Vital Signs
Temp Pulse Resp BP Pulse Ox
97.9 F 73 16 135/66 95
12/05/23 08:00 12/05/23 08:00 12/05/23 08:00 12/05/23 08:00 12/05/23 11:11
I&O
12/04/23 12/05/23 12/06/23
06:59 06:59 06:59
Intake Total 1680 / 1680 240 / 240
Output Total 3760 / 3760 1900 / 1900
Balance -3760 / -3760 -220 / -220 240 / 240
Review of Systems
-
History Source: Patient and Coordinated Provider (MISAEL Mosley)
Constitutional: Denies Fever
EENT: Reports No Symptoms Reported
Respiratory: Reports No Symptoms
Cardiac: Reports No Symptoms; Denies Chest Pain
Abdomen/GI: Reports No Symptoms
Genitourinary: Reports Bleeding
Musculoskeletal: Reports No Symptoms
Neuro: Reports No Symptoms
Physical Exam
-
General: Well Developed, Well Nourished and No Apparent Distress
HEENT: Normocephalic, Atraumatic and Moist Mucous Membranes
Respiratory: Clear to Auscultation; Negative Wheezes, Rales or Rhonchi
Cardiac: Regular Rhythm and S1/S2
GI: Soft and Nondistended
Genito-urinary: No Costovertebral Tender and Bustamante (grossly bloody)
Musculoskeletal: No Clubbing, No Cyanosis and No Edema
Neuro: Awake, Alert and Oriented
--- NOTE | 2023-12-05 14:17 | W.PN.UPDATE ---
Update Note
Progress Note Update
due to hand-irrigation requirement. existing 22 FR 2-way Julian was changed to 24 FR silicon, enhanced fenestration 3-way Julian; few old clots evacuated; CBI initiated with pale pink outflow
Posted for OR tomorrow
[2023-12-05 15:08] VITALS: BP 138/69
--- NOTE | 2023-12-05 17:15 | CM ---
CM following re: d/c planning
Chart reviewed
Pt discharge not anticipated for greater than 48 hours
Pt is being followed by urology and is scheduled for cystoscope in the a.m.
Pt has no skilled PT/OT needs as he's physically independent
CM will continue to monitor patient's progress and assist with any needs at d/c as indicated
PLAN; CM following for needs
[2023-12-05] MEDS: ROCEPHIN 1000 MG IV (17:55)
[2023-12-05] MEDS: STERILE WATER FOR INJECTION 10 ML IV (17:55)
[2023-12-05] MEDS: COLACE PO (19:59)
[2023-12-05] MEDS: LIPITOR 40 MG PO (20:02)
[2023-12-05] MEDS: TOPROL XL 25 MG PO (20:03)
[2023-12-05 23:00] VITALS: BP 120/69
[2023-12-06] VITALS (15 sets, daily range): BP systolic 123–146; BP diastolic 57–94; BMI 31.5
[2023-12-06] MEDS: BenGay-Like 1 APPLIC TOPICAL (04:10)
--- NOTE | 2023-12-06 04:45 | PTCARENOTE ---
Patient complaining of 'right leg muscle ache' rating between a 4-10. Patient states it 'could be from laying in the same position'. Education provided on importance of turning, pillow placed under leg for comfort. BEST WORKER made aware, Kiana ordered
and given to patient with relief.
[2023-12-06 07:17] LABS: % Basophils 0.8 % (0-2); % Eosinophils 4.1 % (0-6); % Immature Granulocytes 0.3 % (0-0.5); % Lymphocytes 23.6 % (20.5-51.1); % Neutrophils 61.2 % (42.2-75.2); Absolute Basophils 0.1 10^3/uL (0-0.2); Absolute Eosinophils 0.3 10^3/uL (0-0.7); Absolute Lymphocytes 1.6 10^3/uL (1.2-3.4); Absolute Monocytes 0.7 10^3/uL (0.1-0.6); Absolute Neutrophils 4.1 10^3/uL (1.4-6.5); Hematocrit 33.8 % (39.0-52.0); Hemoglobin 11.9 g/dL (13.0-18.0); Mean Corp Hgb Conc. 35.2 g/dL (33.0-37.0); Mean Corpuscular Hgb 33.9 pg (27.0-31.0); Mean Corpuscular Volume 96.3 fL (80.0-94.0); Mean Platelet Volume 10.6 fL (7.4-10.4); Nucleated Red Blood Cells % 0 % (-); Platelet Count 200 10^3/uL (130-400); Red Blood Cell Count 3.51 10^6/uL (4.70-6.10); Red Cell Dist. Width 12.1 % (11.5-14.5); White Blood Cell Count 6.6 10^3/uL (4.8-10.8)
[2023-12-06 07:40] LABS: Blood Urea Nitrogen 25 mg/dl (9-20); Calcium 9.1 mg/dl (8.4-10.2); Carbon Dioxide 22 mmol/L (22-30); Chloride 104 mmol/L (98-107); Estimated Creatinine Clearance 72 ml/min; Glucose 97 mg/dl (70-99); Sodium 136 mmol/L (135-145); eGFR > 60.00
[2023-12-06] MEDS: COLACE PO (09:30)
[2023-12-06] MEDS: VITAMIN C PO (09:30)
[2023-12-06] MEDS: B COMPLEX w/VITAMIN C PO (09:30)
[2023-12-06] MEDS: VITAMIN E PO (09:30)
[2023-12-06] MEDS: VITAMIN D3 (cholecalciferol) PO (09:30)
[2023-12-06] MEDS: ASPIR LOW (ENTERIC COATED) 81 MG PO (09:53)
[2023-12-06] MEDS: PROSCAR 5 MG PO (09:53)
--- NOTE | 2023-12-06 12:46 | W.PN.HOSP.TC ---
Today's Communication/Plan
-
for cysto today
Assessment / Plan
Assessment / Plan
Assessment/Plan
Gross hematuria etiology remains unclear, agree with potentiated by Dual Antiplatelet Therapy
Urinary Retention
Pt was in [place] during [place] offensive (assume [place] exposure, though pt does not believe he was significantly exposed)
Urine cx ordered by me, resulted on 12/03. Pt was already on abx at that time, though urine showed no growth
-Urology consulted, recommendations appreciated
-Urology planning cysto at 3PM today
-Finasteride
-Monitor CBC
-Brilinta was given 12/01 only, Input from cardio appreciated, Dr. Hedrick relayed through Dr. Espinal that Cardio would be okay to stop the Brilinta, which was stopped, but needs to continue ASA
PSA 8.16 (was ordered as per request of dgt). Uncertain of significance in pt with bustamante, and possible UTI on admission. Pt aware that this will need to be rechecked once acute process resolved
Coronary artery disease
NSTEMI (placed on Dual Antiplatelet therapy in April 11, 2023 after stent placed)
-Continue Aspirin
-Continue home Toprol XL 25 mg PO HS
-Continue home Atorvastatin 40 mg HS
Hypertension - continue home beta yovany as above
BP 135/66
Hyperlipidemia - continue statin as above
Obesity
DVT Prophylaxis: SCDs (no chemical DVT PPx due to hematuria)
Code Status: Full Code
Anticipated Discharge: 24 - 48 hours
Subjective/Interval History
-
Date of Service: December 06, 2023
Urine appears less bloody and is awaiting cysto
Objective Data
-
Labs:
Laboratory Results
12/06/23
06:42
WBC 6.6
Hgb 11.9 L
Hct 33.8 L
Plt Count 200
Sodium 136
Potassium 4.0
Chloride 104
Carbon Dioxide 22
BUN 25 H
Creatinine 0.9
Glucose 97
Calcium 9.1
Vital Signs:
Vital Signs
Temp Pulse Resp BP Pulse Ox
98.1 F 64 16 130/70 97
12/06/23 07:27 12/06/23 07:27 12/06/23 07:27 12/06/23 07:27 12/06/23 08:00
I&O
12/05/23 12/06/23 12/07/23
06:59 06:59 06:59
Intake Total 1680 / 1680 240 / 240
Output Total 1900 / 1900 2400 / 2400
Balance -220 / -220 -2160 / -2160
Review of Systems
-
History Source: Patient
Constitutional: Denies Fever
EENT: Reports No Symptoms Reported
Respiratory: Reports No Symptoms
Cardiac: Reports No Symptoms; Denies Chest Pain
Abdomen/GI: Reports No Symptoms
Genitourinary: Reports Bleeding
Musculoskeletal: Reports No Symptoms
Neuro: Reports No Symptoms
Physical Exam
-
General: Well Developed, Well Nourished and No Apparent Distress
HEENT: Normocephalic, Atraumatic and Moist Mucous Membranes
Respiratory: Clear to Auscultation; Negative Wheezes, Rales or Rhonchi
Cardiac: Regular Rhythm and S1/S2
GI: Soft and Nondistended
Genito-urinary: No Costovertebral Tender and Bustamante (urine appears yellow, non bloody)
Musculoskeletal: No Clubbing, No Cyanosis and No Edema
Neuro: Awake, Alert and Oriented
--- NOTE | 2023-12-06 14:29 | PTCARENOTE ---
1400 Received patient this am AAOX3. Pt NPO for OR. Report called to OR an patient taken to OR by transport.
--- NOTE | 2023-12-06 14:49 | W.SUR.PREOP ---
Pre-Operative Surgical Note
-
I have examined this patient prior to the performance of the scheduled procedure.
Surgical consent signed then place on chart.
--- NOTE | 2023-12-06 15:07 | PN.CDI ---
CDI
- -
CDI:
Physician Documentation Request
Admit Date: 12/01/23 20:25
Dear Doctor Feli,
Clinical Indicators:
Patient admitted with hematuria.
12/03 (19:25) RN note, 'Catheter was irrigated, multiple large blood clots were out.'
Hgb/Hct trend:
12/01/23 12/04/23 12/06/23
12:39 05:48 06:42
Hgb 14.5 13.3 11.9 L
Hct 40.7 37.8 L 33.8 L
Based on the above, could you clarify in the progress notes, the appropriate diagnosis, if significant, that supports the above abnormalities and additional evaluation, monitoring and/or treatment rendered:
Acute blood loss anemia
Abnormal lab value, clinically insignificant
Other, please specify
Use of terms such as suspected, likely, concern for, or probable (associated with a specific diagnosis that is being evaluated, monitored, or treated as if it exists) are acceptable and can be coded in the inpatient setting, when documented at the
time of discharge.
Thank you,
LUAN Corrales RN
CDI Specialist
available via tiger text
Please use your independent medical judgment in providing your response.
--- NOTE | 2023-12-06 16:15 | W.IMMPOSTOP ---
Surgical Immed Post Op Note
-
Primary Surgeon: Alex
Pre-op Diagnosis: Intractable gross hematuria
Post-op Diagnosis: Prostatic hemorrhage causing Intractable gross hematuria
Procedure Performed: TURP
Anesthesia Type: gen
Specimen / Cultures: prostate chips
Estimated Blood Loss: 31 ml
Complications: none
Operative Findings: friable trilobar Prostatic enlargement
[2023-12-06] MEDS: ANCEF 10 IV (17:09)
--- NOTE | 2023-12-06 18:05 | PTCARENOTE ---
Pt received in bed from PACU s/p cysto, clot evac & TURP. Pt drowsy but AAOx3. CBI infusing. Julian draining punch colored urine. Pt denies any pain at this time.
[2023-12-06] MEDS: STERILE WATER FOR INJECTION 10 ML IV (18:09)
[2023-12-06] MEDS: ROCEPHIN 1000 MG IV (18:09)
[2023-12-06] MEDS: COLACE 100 MG PO (21:16)
[2023-12-06] MEDS: LIPITOR 40 MG PO (21:16)
[2023-12-06] MEDS: TOPROL XL 25 MG PO (21:16)
[2023-12-07 03:31] VITALS: BP 121/64
[2023-12-07 03:32] VITALS: BMI 32.1
--- NOTE | 2023-12-07 07:27 | W.PN.URO.CBU ---
Today's Communication / Plan
-
Julian removal
will be fit for discharge urologically after he voids this morning
Assessment / Plan
-
expected degree of hematuria s/p TURP
Diagnosis
-
Date of Service: December 07, 2023
-
Post Op Day: 1
Patient Diagnosis:
Gross Hematuria due to prostatic hemorrhage potentiated by DAPT
s/p TURP 12/06
Subjective
-
feels well
tired
Objective
-
Vital Signs
Temp Pulse Resp BP Pulse Ox
98.6 F 64 18 121/64 96
12/07/23 03:31 12/07/23 03:31 12/07/23 03:31 12/07/23 03:31 12/07/23 03:31
Intake and Output
12/06/23 12/07/23 12/08/23
06:59 06:59 06:59
Intake Total 240 / 240 580 / 580 960 / 960
Output Total 2400 / 2400 1750 / 1750
Balance -2160 / -2160 -1170 / -1170 960 / 960
Intake:
Oral fluids 240 / 240 480 / 480 960 / 960
IV fluids (Total) 100 / 100
Normosol 100 / 100
Output:
Urine, Julian 400 / 400
True Urine Output from [facility] 1999 / 1999 1750 / 1750
Laboratory Results
12/06/23 06:42
12/06/23 06:42
Physical Exam
-
Genitalia - Julian: pale pink outflow
[2023-12-07 07:30] VITALS: BP 121/68
[2023-12-07] MEDS: Pyridium 200 MG PO (08:05)
[2023-12-07] MEDS: COLACE 100 MG PO (08:06)
[2023-12-07] MEDS: VITAMIN C 500 MG PO (08:06)
[2023-12-07] MEDS: VITAMIN E 400 UNITS PO (08:06)
[2023-12-07] MEDS: PROSCAR 5 MG PO (08:06)
[2023-12-07] MEDS: ASPIR LOW (ENTERIC COATED) 81 MG PO (08:07)
[2023-12-07] MEDS: B COMPLEX w/VITAMIN C 1 CAPLET PO (08:07)
[2023-12-07] MEDS: VITAMIN D3 (cholecalciferol) 25 MCG PO (08:07)
--- NOTE | 2023-12-07 11:17 | CM ---
Chart reviewed. Spoke with pt
Pt requesting home services - no preference
Referred to [facility]
Discussed IMM
Plan - anticipate home to previous setting with home health - [facility]
[2023-12-07 12:00] VITALS: BP 148/70
--- NOTE | 2023-12-07 12:51 | W.PN.HOSP.TC ---
Today's Communication/Plan
-
dc to home
Assessment / Plan
Assessment / Plan
Assessment/Plan
Gross hematuria etiology remains unclear, agree with potentiated by Dual Antiplatelet Therapy
Urinary Retention
Pt was in [place] during [place] offensive (assume Agent [employer] exposure, though pt does not believe he was significantly exposed)
Urine cx ordered by me, resulted on 12/03. Pt was already on abx at that time, though urine showed no growth
-Urology consulted, recommendations appreciated
-underwent cysto at 3PM 12/06, bustamante catheter removed, just notified that pt voided and has been cleared by Urology to be discharged
-Finasteride
-Brilinta was given 12/01 only, Input from cardio appreciated, Dr. Hedrick relayed through Dr. Espinal that Cardio would be okay to stop the Brilinta, which was stopped, but needs to continue ASA
PSA 8.16 (was ordered as per request of dgt). Uncertain of significance in pt with bustamante, and possible UTI on admission. Pt aware that this will need to be rechecked once acute process resolved
Acute Blood Loss Anemia due to gross hematuria
Coronary artery disease
NSTEMI (placed on Dual Antiplatelet therapy in April 11, 2023 after stent placed)
-Continue Aspirin
-Continue home Toprol XL 25 mg PO HS
-Continue home Atorvastatin 40 mg HS
Hypertension - continue home beta yovany as above
BP 148/70
Hyperlipidemia - continue statin as above
Obesity
Code Status: Full Code
dc to home
More than 30 minutes spent in discharge including
Final examination of the patient
Summarizing hospital stay
Instructions for continuing care to all relevant caregivers
Preparation of discharge records, prescriptions, and referral forms
Total time spent (in minutes): 45
Anticipated Discharge: Today
Subjective/Interval History
-
Date of Service: December 07, 2023
Feels well, bustamante removed
Objective Data
-
Vital Signs:
Vital Signs
Temp Pulse Resp BP Pulse Ox
97.9 F 60 17 148/70 99
12/07/23 12:00 12/07/23 12:00 12/07/23 12:00 12/07/23 12:00 12/07/23 12:00
I&O
12/06/23 12/07/23 12/08/23
06:59 06:59 06:59
Intake Total 240 / 240 580 / 580 960 / 960
Output Total 2400 / 2400 1750 / 1750 800 / 800
Balance -2160 / -2160 -1170 / -1170 160 / 160
Review of Systems
-
History Source: Patient
Constitutional: Denies Fever
EENT: Reports No Symptoms Reported
Respiratory: Reports No Symptoms
Cardiac: Reports No Symptoms; Denies Chest Pain
Abdomen/GI: Reports No Symptoms
Genitourinary: Reports Bleeding
Musculoskeletal: Reports No Symptoms
Neuro: Reports No Symptoms
Physical Exam
-
General: Well Developed, Well Nourished and No Apparent Distress
HEENT: Normocephalic, Atraumatic and Moist Mucous Membranes
Respiratory: Clear to Auscultation; Negative Wheezes, Rales or Rhonchi
Cardiac: Regular Rhythm and S1/S2
GI: Soft and Nondistended
Genito-urinary: No Costovertebral Tender
Musculoskeletal: No Clubbing, No Cyanosis and No Edema
Neuro: Awake, Alert and Oriented
--- NOTE | 2023-12-07 13:12 | W.DS.TRANS ---
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
-
Discharge Instructions:
Discharge Diagnosis/Procedures Prostate Hemorrhage with gross hematuria
Diet Low Cholesterol
Activity No strenuous activity
Driving Restrictions Not until seen by your Dr
Bathing Restrictions None
Blood Work CBC, BMP, UA with C&S in 1-2 weeks
repeat PSA in 6-8 weeks
Other Services VN
Stop these medications: Brilinta
Instructions:
Stand-Alone Forms:
Changes to Home Medications: Yes
Discharge Medications:
DC Medications w/original date entered in [employer]
ascorbic acid (vitamin C) 500 mg tablet (Vitamin C) 500 mg PO DAILY Supplement 04/11/23
saw palmetto 500 mg capsule 500 mg PO HS Supplement 04/11/23
vitamin B complex 1 tab PO DAILY Supplement 04/11/23
aspirin 81 mg tablet,delayed release 81 mg PO DAILY Blood Clot Prevention/Tx #90 tabs 04/12/23
atorvastatin 40 mg tablet 40 mg PO HS High Cholesterol 12/01/23
cholecalciferol (vitamin D3) 25 mcg (1,000 unit) tablet (Vitamin D3) 25 mcg PO DAILY Supplement 12/01/23
metoprolol succinate 25 mg tablet,extended release 24 hr 25 mg PO HS Blood Pressure 12/01/23
nitroglycerin 0.4 mg sublingual tablet 0.4 mg sublingual [id number] PRN chest pain 12/01/23
vitamin E 268 mg (400 unit) capsule 268 mg PO DAILY Supplement 12/01/23
cefuroxime axetil 500 mg tablet 500 mg PO BID 7 days #14 tabs 12/07/23
finasteride 5 mg tablet 5 mg PO DAILY to prevent recurrent bleeding #90 tabs 12/07/23
methenam 118 mg-m.blue 10 mg-s.phos 40.8 mg-p.salic 36 mg-hyos capsule (Uro-MP) 1 tab PO QID bladder irritation #40 caps 12/07/23
Home Medication Changes
Stop Brilinta
Cetin for 7 days
Finasteride and Methenam are to be started
Pending Results: Yes
Additional Pending Results:
Prostate biopsy
== END 2023-12-07 14:09 | disposition home health service (06) | DRG 713 ==
LOC: 2 SOUTH 20:25
PROVIDERS: Physician Assistant; ADMITTING PHYSICIAN Hospitalist; ATTENDING PHYSICIAN Internal Medicine; CONSULT PHYSICIAN Internal Medicine Cardiovascular Disease; CONSULT PHYSICIAN Specialist; EMERGENCY PHYSICIAN Emergency Medicine; FAMILY PHYSICIAN Internal Medicine
PROC: 0VB08ZZ Excision of Prostate, Via Natural or Artificial Opening Endoscopic (ICD-10-PCS; 2023-12-06)
PROC: 0TCB8ZZ Extirpation of Matter from Bladder, Via Natural or Artificial Opening Endoscopic (ICD-10-PCS; 2023-12-06)
DX: N42.1 Congestion and hemorrhage of prostate (principal); D62 Acute posthemorrhagic anemia; D68.32 Hemorrhagic disorder due to extrinsic circulating anticoagulants; N32.0 Bladder-neck obstruction; I25.10 Atherosclerotic heart disease of native coronary artery without angina pectoris; R33.8 Other retention of urine; E66.9 Obesity, unspecified; I25.2 Old myocardial infarction; Z68.32 Body mass index [BMI] 32.0-32.9, adult; T45.525A Adverse effect of antithrombotic drugs, initial encounter
CPT/HCPCS: 88305; 51702; 51798; 74176; 80048; 80053; 81003; 81015; 83735; 84153; 85025; 85610; 85730; 87086; 88344; 96374; 99285

== ENCOUNTER → 2024-03-21 13:00 | Outpatient (REF) | payer MEDICARE, OTHER, SELFPAY ==
[2024-03-21 14:42] LABS: PSA, Total - Diagnostic 0.92 ng/ml (0.0-4.0)
== END ==
LOC: REG 13:00
PROVIDERS: ATTENDING PHYSICIAN Urology; FAMILY PHYSICIAN Internal Medicine
DX: R97.20 Elevated prostate specific antigen [PSA] (principal)
CPT/HCPCS: 36415; 84153

== ENCOUNTER → 2024-07-09 09:08 | Outpatient (REF) | payer MEDICARE, OTHER, SELFPAY ==
[2024-07-09 10:02] LABS: % Basophils 0.9 % (0-2); % Eosinophils 2.3 % (0-6); % Immature Granulocytes 0.2 % (0-0.5); % Lymphocytes 32.1 % (20.5-51.1); % Monocytes 8.6 % (1.7-9.3); % Neutrophils 55.9 % (42.2-75.2); Absolute Basophils 0.1 10^3/uL (0-0.2); Absolute Eosinophils 0.1 10^3/uL (0-0.7); Absolute Lymphocytes 1.8 10^3/uL (1.2-3.4); Absolute Monocytes 0.5 10^3/uL (0.1-0.6); Absolute Neutrophils 3.2 10^3/uL (1.4-6.5); Hematocrit 44.3 % (39.0-52.0); Hemoglobin 15.4 g/dL (13.0-18.0); Mean Corp Hgb Conc. 34.8 g/dL (33.0-37.0); Mean Corpuscular Hgb 33.3 pg (27.0-31.0); Mean Corpuscular Volume 95.7 fL (80.0-94.0); Mean Platelet Volume 10.6 fL (7.4-10.4); Nucleated Red Blood Cells % 0 % (-); Platelet Count 197 10^3/uL (130-400); Red Blood Cell Count 4.63 10^6/uL (4.70-6.10); Red Cell Dist. Width 12.6 % (11.5-14.5); White Blood Cell Count 5.7 10^3/uL (4.8-10.8)
[2024-07-09 10:54] LABS: ALT (SGPT) 25 U/L (0-50); AST (SGOT) 30 U/L (17-59); Alkaline Phosphatase 95 U/L (38-126); Blood Urea Nitrogen 38 mg/dl (9-20); Calcium 9.4 mg/dl (8.4-10.2); Carbon Dioxide 23 mmol/L (22-30); Chloride 106 mmol/L (98-107); Glucose 84 mg/dl (70-99); HDL Cholesterol 58 mg/dl; LDL Cholesterol, Calculated 61 mg/dl; Potassium 4.7 mmol/L (3.5-5.1); Sodium 141 mmol/L (135-145); Total Bilirubin 1.2 mg/dl (0.2-1.3); Total Cholesterol 129 mg/dl (50-199); Total Protein 6.8 g/dl (6.3-8.2); Triglyceride 51 mg/dl (10-149); Very Low Density Lipoprotein 10 mg/dl (0-30); eGFR > 60.00
[2024-07-09 11:21] LABS: TSH Reflex To Free T4 2.73 uIU/ml (0.47-4.68)
== END ==
LOC: REG 09:08
PROVIDERS: ATTENDING PHYSICIAN Internal Medicine Interventional Cardiology; FAMILY PHYSICIAN Internal Medicine
DX: R42 Dizziness and giddiness (principal); Z95.5 Presence of coronary angioplasty implant and graft; E78.2 Mixed hyperlipidemia; I10 Essential (primary) hypertension; Z79.899 Other long term (current) drug therapy
CPT/HCPCS: 36415; 80053; 80061; 83036; 84443; 85025

== ENCOUNTER → 2024-12-22 10:11 | Outpatient (REF) | payer MEDICARE, OTHER, SELFPAY ==
[2024-12-22 11:09] LABS: % Basophils 0.8 % (0-2); % Eosinophils 2.1 % (0-6); % Immature Granulocytes 0.2 % (0-0.5); % Lymphocytes 38.3 % (20.5-51.1); % Monocytes 8.9 % (1.7-9.3); % Neutrophils 49.7 % (42.2-75.2); Absolute Eosinophils 0.1 10^3/uL (0-0.7); Absolute Monocytes 0.5 10^3/uL (0.1-0.6); Absolute Neutrophils 2.6 10^3/uL (1.4-6.5); Hematocrit 42.2 % (39.0-52.0); Hemoglobin 14.7 g/dL (13.0-18.0); Mean Corp Hgb Conc. 34.8 g/dL (33.0-37.0); Mean Corpuscular Hgb 32.8 pg (27.0-31.0); Mean Corpuscular Volume 94.2 fL (80.0-94.0); Mean Platelet Volume 10.2 fL (7.4-10.4); Nucleated Red Blood Cells % 0 % (-); Platelet Count 185 10^3/uL (130-400); Red Blood Cell Count 4.48 10^6/uL (4.70-6.10); Red Cell Dist. Width 12.7 % (11.5-14.5); White Blood Cell Count 5.2 10^3/uL (4.8-10.8)
[2024-12-22 11:34] LABS: Urine Albumin 1+ (Neg - Trace); Urine Bilirubin Negative (Negative); Urine Character Clear (Clear); Urine Color Yellow; Urine Glucose Negative (Negative); Urine Ketone Negative (Negative); Urine Leukocyte Negative (Negative); Urine Nitrite Negative (Negative); Urine Occult Blood Negative (Negative); Urine Urobilinogen Negative (Neg - 1+)
[2024-12-22 11:47] LABS: Urine Mucus Many
[2024-12-22 11:48] LABS: Urine Amorphous Seen
[2024-12-22 11:49] LABS: Urine Hyaline Cast 0-2 /LPF (0-2); Urine Red Blood Cell 0-2 /HPF (0-2); Urine White Cell 0-2 /HPF (0-5)
[2024-12-22 11:58] LABS: ALT (SGPT) 36 U/L (0-50); AST (SGOT) 31 U/L (17-59); Albumin 4.2 g/dl (3.5-5.0); Alkaline Phosphatase 88 U/L (38-126); Blood Urea Nitrogen 30 mg/dl (9-20); Calcium 9.5 mg/dl (8.4-10.2); Carbon Dioxide 21 mmol/L (22-30); Chloride 107 mmol/L (98-107); Glucose 97 mg/dl (70-99); HDL Cholesterol 46 mg/dl; Potassium 4.4 mmol/L (3.5-5.1); Sodium 139 mmol/L (135-145); Total Bilirubin 1.5 mg/dl (0.2-1.3); Total Cholesterol 116 mg/dl (50-199); Total Protein 6.9 g/dl (6.3-8.2); eGFR > 60.00
[2024-12-22 12:08] LABS: PSA, Total - Screen 1.56 ng/ml (0.0-4.0); TSH 2.34 uIU/ml (0.47-4.68)
[2024-12-22 12:21] LABS: LDL Cholesterol, Calculated 53 mg/dl; Triglyceride 87 mg/dl (10-149); Very Low Density Lipoprotein 17 mg/dl (0-30)
== END ==
LOC: REG 10:11
PROVIDERS: ATTENDING PHYSICIAN Internal Medicine
DX: R33.9 Retention of urine, unspecified (principal); I10 Essential (primary) hypertension; R29.818 Other symptoms and signs involving the nervous system; E78.2 Mixed hyperlipidemia; Z12.5 Encounter for screening for malignant neoplasm of prostate
CPT/HCPCS: 36415; 80053; 80061; 81003; 81015; 84443; 85025; G0103

== ENCOUNTER → 2025-02-27 13:39 | Outpatient (REF) | payer MEDICARE, OTHER, SELFPAY | LOC: EMG 13:39 | PROVIDERS: ATTENDING PHYSICIAN Podiatrist Foot & Ankle Surgery; FAMILY PHYSICIAN Internal Medicine | DX: M54.17 Radiculopathy, lumbosacral region (principal); R20.0 Anesthesia of skin | CPT/HCPCS: 95886; 95909 ==

== ENCOUNTER → 2025-03-19 07:56 | Outpatient (REF) | payer MEDICARE, OTHER, SELFPAY | LOC: PAVMRI 07:56 | PROVIDERS: ATTENDING PHYSICIAN Physician Assistant; FAMILY PHYSICIAN Internal Medicine | DX: M25.561 Pain in right knee (principal) | CPT/HCPCS: 73721 ==

== ENCOUNTER 2025-04-23 06:23 | Day surgery (SDC) | payer MEDICARE, OTHER, SELFPAY | END 2025-04-23 09:33 | disposition home or self-care (01) | LOC: GI 06:23 | PROVIDERS: ATTENDING PHYSICIAN Internal Medicine Gastroenterology | DX: Z12.11 Encounter for screening for malignant neoplasm of colon (principal); K64.8 Other hemorrhoids; K57.30 Diverticulosis of large intestine without perforation or abscess without bleeding; D12.2 Benign neoplasm of ascending colon | CPT/HCPCS: 45385; 88305 ==